=== PATIENT | male | born 1980 | race Caucasian/White ===

== ENCOUNTER 2016-09-15 05:29 | Emergency (ER) | payer OTHER ==
[~2016-09-15] VITALS: Ht 172.7 cm; Wt 102.1 kg
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
--- NOTE | 2016-09-15 06:34 | RAD ---
RS Compliance Statement: One or more of the following individualized dose reduction techniques were utilized for this examination: 1. Automated exposure control 2. Adjustment of the mA and/or kV according to patient size 3. Use of iterative reconstruction technique CT HEAD AND CERVICAL SPINE WITHOUT CONTRAST History: Injury from fall, headache, neck pain. Comparison: None. Procedure: Axial images are obtained of the head from the skull base through the vertex without IV contrast. Noncontrast helical CT of the cervical spine was performed. Axial, sagittal, and coronal reconstructions were obtained. Findings: The ventricles and sulci are normal for the patient's age. No mass-effect, midline shift, hemorrhage or obvious acute infarction is identified. Basilar cisterns are patent. Bone windows demonstrate no significant calvarial abnormality. Mild inferior frontal scalp hematoma. The visualized paranasal sinuses are clear. Mastoid air cells are well aerated. There is no evidence of acute fracture or acute malalignment. The vertebral body height and alignment are maintained. No disc space narrowing. The facet joints are intact. No narrowing of the central canal is seen. Visualized soft tissues of the neck demonstrate no significant abnormalities. The visualized lung apices are clear. IMPRESSION: 1. No acute intracranial abnormality. 2. No acute fracture of the cervical spine. Electronically signed by: Oscar Resendez MD (09/15/2016 6:30 AM) [facility]
--- NOTE | 2016-09-15 06:40 | RAD ---
RS Compliance Statement: One or more of the following individualized dose reduction techniques were utilized for this examination: 1. Automated exposure control 2. Adjustment of the mA and/or kV according to patient size 3. Use of iterative reconstruction technique CT LUMBAR SPINE WO CONTRAST, CT THORACIC SPINE WO CONTRAST Clinical Indication: [id number] Injury from fall, severe lower back pain. Comparison: None. Technique: Helical CT imaging of the thoracic and lumbar spine is performed without IV contrast. Findings: No acute compression fracture in the thoracic spine. The vertebral body height and alignment are maintained. There is minimal degenerative endplate spurring. No obvious narrowing of the central canal is seen. No high-grade bony neural foraminal narrowing is seen. Minimal dependent atelectasis in the lungs, greater on the right. No compression fracture or subluxation in the lumbar spine. Disc spaces are maintained. Central canal is patent. Limited visualization of the retroperitoneum is unremarkable. IMPRESSION: No acute compression fracture or subluxation in the thoracic or lumbar spine. Electronically signed by: Oscar Resendez MD (09/15/2016 6:36 AM) [facility]
--- NOTE | 2016-09-15 06:40 | RAD ---
RS Compliance Statement: One or more of the following individualized dose reduction techniques were utilized for this examination: 1. Automated exposure control 2. Adjustment of the mA and/or kV according to patient size 3. Use of iterative reconstruction technique CT LUMBAR SPINE WO CONTRAST, CT THORACIC SPINE WO CONTRAST Clinical Indication: [id number] Injury from fall, severe lower back pain. Comparison: None. Technique: Helical CT imaging of the thoracic and lumbar spine is performed without IV contrast. Findings: No acute compression fracture in the thoracic spine. The vertebral body height and alignment are maintained. There is minimal degenerative endplate spurring. No obvious narrowing of the central canal is seen. No high-grade bony neural foraminal narrowing is seen. Minimal dependent atelectasis in the lungs, greater on the right. No compression fracture or subluxation in the lumbar spine. Disc spaces are maintained. Central canal is patent. Limited visualization of the retroperitoneum is unremarkable. IMPRESSION: No acute compression fracture or subluxation in the thoracic or lumbar spine. Electronically signed by: Oscar Resendez MD (09/15/2016 6:36 AM) [facility]
[2016-09-15] MEDS ORDERED: ACETAMINOPHEN 500 MG TABLET PO ONE ×2 (07:00→07:21)
[2016-09-15 08:54] VITALS: BP 146/86
--- NOTE | 2016-09-15 09:03 | RAD ---
EXAM: Left shoulder 4 views. HISTORY: Left shoulder pain after fall. COMPARISON: None. FINDINGS: No fractures are identified. Glenohumeral alignment is maintained. There are limitations from nonstandard positioning. There is mild acromioclavicular joint space narrowing for patient age. The glenohumeral joint space also appears mildly narrowed. IMPRESSION: 1. No fracture or malalignment. 2. Mild degenerative changes at the acromioclavicular and glenohumeral joints.
== END 2016-09-15 09:00 | disposition home or self-care (01) ==
LOC: EEVIPCON 05:29 → ER 05:29
DX: S20.222A Contusion of left back wall of thorax, initial encounter (principal); S30.0XXA Contusion of lower back and pelvis, initial encounter; S40.012A Contusion of left shoulder, initial encounter; R51 Headache; W10.8XXA Fall (on) (from) other stairs and steps, initial encounter; Y93.89 Activity, other specified; Y99.0 Civilian activity done for income or pay; Y92.89 Other specified places as the place of occurrence of the external cause
CPT/HCPCS: 70450; 72125; 72128; 72131; 73030; 99285-25